=== PATIENT | male | born 1975 | race Caucasian/White ===

== ENCOUNTER 2019-08-08 08:02 | Outpatient (CLI) | payer BC, SELFPAY ==
--- NOTE | 2019-08-12 19:43 | SLEEP_ITS ---
Home sleep test. DATE OF STUDY: 08/08/2019 ORDERING PHYSICIAN: Frank Nguyen M.D. REASON FOR THE STUDY: Constant fatigue, depression, restless sleep. HISTORY: This patient is a 44-year-old male, 6 feet tall, 290 pounds with a body mass index of 39.3. There is a history of sleep apnea and CPAP use. He has constant fatigue, restless sleep, difficulty falling asleep and staying asleep, which began about 10 years ago. He has a deviated septum and had surgery about 13 years ago. He had a sleep study with a CPAP titration, but found that he could not sleep using the CPAP. He tried sleeping pills including Ambien and trazodone with stimulants during the day including Adderall for ADD. This was extremely severe and impacts him during the day. There is a family history with the father having loud snoring and falling asleep during the daytime. He wakes up during the night. His daytime function is poor. He occasionally snores and occasionally it is loud enough that others complain about it. He rarely has trouble sleeping with a cold. He does not gasp for breath at night. He occasionally has breathing problems witnessed by others. He does not sweat excessively at night. He rarely notices his heart pounding or beating irregularly at night. He frequently naps during the daytime. He does not fall asleep involuntarily, while driving, and does not have loss of muscle tone with strong emotion. He frequently has daytime difficulty due to excessive sleepiness. 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 There is no paralysis on falling asleep or waking up. Occasionally, he has vivid dreamlike scenes upon awakening or falling asleep. He is never afraid to go to sleep. He rarely has nightmares. He frequently remembers his dreams. He constantly has racing thoughts. He frequently feels sad, depressed, and occasionally has anxiety. He constantly has muscular tension. He occasionally notices parts of his body jerking. He does not kick at night. Does not have crawly achy feelings in his legs and does not have leg pain at night. He does not have morning jaw pain. He does not grind his teeth at night. He frequently is bothered by pain during the day. He rarely is bothered or awaken with pain at night. He occasionally wakes up feeling stiff in the morning with sore achy muscles. He has bowel disturbances, stomach problems, memory problems and concentration difficulties. He feels unmotivated. Bedtime is 10:00 p.m., taking at least 45 minutes to fall asleep, typically waking 3-5 times at night for anywhere between 15 minutes to 2 hours. During this time, he will lie in bed sometimes, watch television, sometimes he will get up. He wakes up between 9 and 10:00 a.m. Weekend schedule reveals that he goes to bed an hour later, wakes up about the same time in the morning. His social activities have been decreased due to his extreme fatigue and tiredness. He does take naps in the afternoon or evening. A short nap is not refreshing. He is usually drowsy in the morning for 3 hours or longer. MEDICAL COMORBIDITIES: Depression, deviated septum, back pain, IBS with diarrhea, diabetes. MEDICATIONS: 1. Indomethacin 50 mg b.i.d. with food. 2. Duloxetine 60 mg a day. 3. Bupropion HCL 300 mg daily. 4. Melatonin 10 mg at night. HABITS: Never smoked tobacco. Caffeine 4 to 6 beverages a day. No alcohol. No recreational drugs. DESCRIPTION OF THE STUDY: On the [place] Sleepiness Scale, his score is 7. This was conducted as an unattended type 3 portable home sleep test using 4 channel monitoring including respiratory effort channel, snoring channel, oxygen saturation channel, and heart rate channel. The study was scored using [facility] guidelines. Duration was 10 hours
== END 2019-08-08 08:03 | disposition home or self-care (01) ==
LOC: ANHCSM 08:03
PROVIDERS: Visit Provider Family Medicine
DX: G47.00 Insomnia, unspecified (principal)
CPT/HCPCS: 95806

== ENCOUNTER → 2020-11-23 01:14 | Outpatient (CLI) | payer BC, SELFPAY ==
[2020-11-23 18:48] LABS: SARS-CoV-2 RNA PCR Negative
== END ==
PROVIDERS: PCP Family Medicine; Visit Provider Podiatrist Foot & Ankle Surgery
DX: Z01.812 Encounter for preprocedural laboratory examination (principal); Z20.822 Contact with and (suspected) exposure to COVID-19
CPT/HCPCS: C9803; U0003; U0005

== ENCOUNTER 2020-11-26 09:12 | Outpatient (NON) | payer BC, SELFPAY | END 2020-11-27 07:42 | disposition home or self-care (01) | PROVIDERS: PCP Family Medicine; Visit Provider Podiatrist Foot & Ankle Surgery | DX: M72.2 Plantar fascial fibromatosis (principal) | CPT/HCPCS: 88304 ==

== ENCOUNTER 2020-11-26 10:23 | Day surgery (SDC) | payer BC, SELFPAY ==
[2020-11-19 10:55] VITALS: BMI 40.6
[2020-11-26 10:55] VITALS: BP 132/98; PULSE 91; RESP 18; TEMP 36.2; O2SAT 100
[2020-11-26] MEDS: LACTATED RINGERS 1,000 ML 30 ML IV CONT ×2 (11:00→12:51)
--- NOTE | 2020-11-26 11:16 | WPDANESEPPF ---
Anes - Initial Pre Proc Eval Procedure: Operation Date: 11/26/20 12:00 Proposed Procedures p Partial Plantar Fasciectomy Left Foot - Maycol Cortez JR, MD Date/Time: 11/26/20 11:16 Surgeon: Maycol Cortez JR, MD Pre Op Diagnosis: Recalcitrant Plantar Fasciitis Left Foot Patient Data Age: 45 Gender: M Height: 6 ft Weight: 145.7 kg Last Vital Signs Temp 36.2 C L 11/26/20 10:55 Pulse 91 11/26/20 10:55 Resp 18 11/26/20 10:55 BP 132/98 H 11/26/20 10:55 Pulse Ox 100 11/26/20 10:55 Allergies Allergy/AdvReac Type Severity Reaction Status Date / Time No Known Allergies Allergy Verified 11/26/20 10:45 Home Medications Medication Instructions Recorded Confirmed Type duloxetine 60 mg capsule,delayed 60 mg PO DAILY #90 cap 08/28/19 11/26/20 Rx release bupropion HCl 300 mg 24 hr tablet, See Rx Instructions .ROUTE 05/17/20 11/26/20 Rx extended release .COMPLEX #90 tablet covid neg Patient hx anesthesia problems: post op nausea/vomiting Family hx anesthesia problems: none PMFSH Past Medical History Medical History ADD (attention deficit disorder) Depression Surgical History Surgical History H/O nasal septoplasty Hx of tonsillectomy Family History Family History Other Diabetes mellitus Family history of arthritis Social History Social History Smoking status: Never smoker Alcohol intake: never Substance use: never Living arrangements: with family Spiritual care concerns: No Anes - Eval Final PreProcedure Day of Procedure 11/26/20 11:16 Patient weight: morbidly obese Heart: regular rate and rhythm Lungs: clear to auscultation Airway: Mallampati scale class II Neurological: alert and oriented Last oral intake: >/= 8 hours ASA classification: III Emergent: no Anesthetic plan: proceed Anesthesia type and monitoring: general GIVS and standard monitoring Informed Consent: The patient's anesthetic plan and its attendant risks and benefits were discussed with the patient/family/POA. Questions were solicited and answers provided to the satisfaction of the patient/family/POA.
--- NOTE | 2020-11-26 11:56 | WPDHPUPDATE1 ---
History and Physical Update Update Date/Time: 11/26/20 11:56 History and Physical has been reviewed, including an updated exam of the patient. There are NO changes in the patient's condition. Risks, benefits, and alternatives have been discussed and questions answered. Patient agrees to proceed with procedure.
[2020-11-26] MEDS: LIDOCAINE HCL 2% LOCAL INJ 20 ML VIAL 5 ML INFILTRATE (12:45)
--- NOTE | 2020-11-26 12:50 | PM.PROC ---
Procedure Note - Detailed Date of procedure: 11/26/20 Pre-op diagnosis: Recalcitrant Plantar Fasciitis Left Foot Post-op diagnosis: same Procedure performed: Partial plantar fasciectomy left foot Anesthesia: MAC and local Surgeon: Maycol Cortez JR, DPM Estimated blood loss (mL): 1 Drains: No Packing: No Pathology: yes (Resected segment of plantar fascia sent for gross and histopathology) Complications: No immediate complications Condition: stable Disposition: same day Findings: Under mild sedation, the patient was brought in to the operating room, placed on the operating table in the supine position. A pneumatic ankle tourniquet was placed about the patient's left ankle. Following IV sedation, local anesthesia was obtained about the left lower extremity utilizing 10 mL of 0.5% Marcaine plain and 2% Lidocaine plain to the tibial nerve aspirating before administering the local anesthesia. The foot was then scrubbed, prepped, and draped in the usual aseptic manner. An Esmarch bandage was then used to exsanguinate the patient's foot and the pneumatic ankle tourniquet was then inflated. Next, an incision was made starting distal to the medial tubercle of the calcaneus extending distally 3cm. All bleeders were cauterized as necessary. Next the dissection was continued down to the plantar fascia it was exposed medially and laterally with [employer] [place] retractors. The medial two thirds of the plantar fascia was transected and a 4mm portion was also cut and sent for gross and histophalogy. The wound site was flushed with sterile saline. The Deep subcutaneus tissue was reapproximated with 3.0 Vicryl and the skin was reapproximated with 2.0 Prolene and 3.0 Prolene in Vertical mattress and Simple interrupted suture technique. Upon completion of the procedure, the dorsal incision was dressed with Adaptic, 4x4s, Kerlix, and Coban. The pneumatic ankle tourniquet was then deflated and a prompt hyperemic response was noted to all digits of the left foot. The surgical shoe was then applied. The patient did very well with the procedure and the anesthesia. She was transferred to the recovery room with vital signs stable and vascular status intact to all toes of the affected foot. Following a period of postoperative monitoring, the patient will be discharged home on the following written and oral postoperative instructions: 1. The patient should keep the dressing clean, dry, and intact. Use a cast protector bag with showers. 2. The patient will be strictly non weight bearing with knee scooter and CAM walker boot. 3. Patient should ice and elevate the right foot when at rest. 4. The patient is to contact Dr. Cortez for all postop care and if any problems arise. 5. Prescriptions were written for Percocet 5/325 dispensed 40 to be taken 1 p.o. q.4-6 hours as needed for severe pain.
[2020-11-26 12:51] VITALS: BP 104/80; PULSE 96; RESP 12; O2SAT 98
[2020-11-26 13:06] VITALS: BP 108/82; PULSE 82; RESP 19; O2SAT 100
--- NOTE | 2020-11-26 13:21 | WPDANESPN ---
Anes - Prog Note Post-Op Date/Time: 11/26/20 13:21 Cardiovascular status: normal Respiratory status: normal Airway patency: baseline Mental status: baseline Post-Op hydration status: normal Vital Signs: Last Vital Signs Temp 36.2 C L 11/26/20 10:55 Pulse 82 11/26/20 13:06 Resp 19 11/26/20 13:06 BP 108/82 11/26/20 13:06 Pulse Ox 100 11/26/20 13:06 Pain Score (VAS): 0 I/O: Intake & Output 11/25/20 11/26/20 11/26/20 23:59 07:59 15:59 Intake Total 750 Balance 750 Post-procedural complaints: none Patient Feedback: Patient satisfied with anesthetic care.
[2020-11-26 13:36] VITALS: BP 119/74; PULSE 90; RESP 18; O2SAT 100
== END 2020-11-26 13:40 | disposition home or self-care (01) ==
PROVIDERS: PCP Family Medicine; Visit Provider Podiatrist Foot & Ankle Surgery
PROC: (CPT 28119; principal; 2020-11-26 12:00)
DX: M72.2 Plantar fascial fibromatosis (principal)
CPT/HCPCS: 28060

== ENCOUNTER → 2021-02-05 07:05 | Outpatient (CLI) | payer BC, SELFPAY ==
[2021-02-05 18:53] LABS: SARS-CoV-2 RNA PCR Negative
== END ==
PROVIDERS: PCP Family Medicine; Visit Provider Nurse Practitioner Family
DX: R05 Cough (principal); Z20.822 Contact with and (suspected) exposure to COVID-19
CPT/HCPCS: C9803; U0003; U0005

== ENCOUNTER 2021-05-25 07:25 | Outpatient (CLI) | payer OTHER, SELFPAY ==
[2021-05-25 07:46] LABS: Anion Gap 7 mmol/L (8-16); Blood Urea Nitrogen 15 mg/dL (9-20); Calcium 9.1 mg/dL (8.4-10.2); Carbon Dioxide 27 mmol/L (22-30); Chloride 101 mmol/L (98-107); Estimated Glomerular Filt Rate 60; Glucose 116 mg/dL (65-110); Potassium 4.7 mmol/L (3.4-5.0); Sodium 135 mmol/L (137-145)
[2021-05-30 12:18] LABS: Testosterone Free 42.2 pg/mL (35.0-155.0); Testosterone Total 247 ng/dL (250-1100)
== END 2021-05-25 07:26 | disposition home or self-care (01) ==
PROVIDERS: PCP Family Medicine; Visit Provider Nurse Practitioner Family
DX: R73.09 Other abnormal glucose (principal); R79.89 Other specified abnormal findings of blood chemistry
CPT/HCPCS: 36415; 80048; 84402; 84403

== ENCOUNTER 2021-07-13 10:21 | Outpatient (CLI) | payer OTHER, SELFPAY ==
[2021-07-13 11:01] LABS: Uric Acid 8.7 mg/dL (3.5-8.5)
[2021-07-13 11:15] LABS: Hemoglobin A1C 5.8 % (<5.7)
[2021-07-16 14:07] LABS: Testosterone Free 50.1 pg/mL (35.0-155.0); Testosterone Total 283 ng/dL (250-1100)
== END 2021-07-13 10:22 | disposition home or self-care (01) ==
PROVIDERS: PCP Family Medicine; Visit Provider Nurse Practitioner Family
DX: R79.89 Other specified abnormal findings of blood chemistry (principal); R73.09 Other abnormal glucose; M10.9 Gout, unspecified
CPT/HCPCS: 36415; 83036; 84402; 84403; 84550

== ENCOUNTER 2021-09-21 08:03 | Outpatient (CLI) | payer OTHER, SELFPAY ==
[2021-09-21 08:51] LABS: Anion Gap 7 mmol/L (8-16); Blood Urea Nitrogen 19 mg/dL (9-20); Carbon Dioxide 28 mmol/L (22-30); Chloride 102 mmol/L (98-107); Estimated Glomerular Filt Rate > 60; Glucose 119 mg/dL (65-110); Potassium 4.8 mmol/L (3.4-5.0); Sodium 137 mmol/L (137-145)
[2021-09-25 19:34] LABS: Testosterone Free 20.3 pg/mL (35.0-155.0); Testosterone Total 135 ng/dL (250-1100)
== END 2021-09-21 08:04 | disposition home or self-care (01) ==
PROVIDERS: PCP Family Medicine; Visit Provider Nurse Practitioner Family
DX: E79.0 Hyperuricemia without signs of inflammatory arthritis and tophaceous disease (principal)
CPT/HCPCS: 36415; 80048; 84402; 84403; 84550

== ENCOUNTER 2021-12-03 11:35 | Outpatient (CLI) | payer OTHER, SELFPAY ==
[2021-12-06 17:24] LABS: PSA, Free 0.16 ng/mL; PSA, Total 0.6 ng/mL (<=4.0)
[2021-12-10 04:36] LABS: Testosterone Free 124.4 pg/mL (35.0-155.0); Testosterone Total 613 ng/dL (250-1100)
== END 2021-12-03 11:36 | disposition home or self-care (01) ==
LOC: ANHLAB 11:37
PROVIDERS: PCP Family Medicine; Visit Provider Nurse Practitioner Family
DX: Z12.5 Encounter for screening for malignant neoplasm of prostate (principal); R79.89 Other specified abnormal findings of blood chemistry; E29.1 Testicular hypofunction
CPT/HCPCS: 36415; 84153; 84154; 84402; 84403

== ENCOUNTER 2022-01-28 13:31 | Outpatient (CLI) | payer OTHER, SELFPAY ==
[2022-01-28 14:10] LABS: Hematocrit 51.7 % (42.0-52.0); Hemoglobin 17.7 g/dL (14.0-18.0); Mean Corpuscular HGB Conc 34.2 g/dl (32-36); Mean Corpuscular Volume 87.6 fl (80-100); Mean Platelet Volume 9.4 fl (7.4-10.4); Platelet Count Result 320 k/mm3 (150-375); Red Cell Distribution Width 13.1 % (11.5-14.5); White Blood Count 7.9 K/mm3 (4.5-10.0)
== END 2022-01-28 13:32 | disposition home or self-care (01) ==
PROVIDERS: PCP Family Medicine; Visit Provider Nurse Practitioner Family
DX: R79.89 Other specified abnormal findings of blood chemistry (principal)
CPT/HCPCS: 36415; 85027

== ENCOUNTER 2022-04-14 15:41 | Outpatient (CLI) | payer BC, SELFPAY ==
[2022-04-17 18:15] LABS: Testosterone Free 215.4 pg/mL (35.0-155.0); Testosterone Total 890 ng/dL (250-1100)
== END 2022-04-14 15:42 | disposition home or self-care (01) ==
LOC: ANHLAB 15:45
PROVIDERS: Physician Assistant Medical; PCP Family Medicine; Visit Provider Family Medicine
DX: R79.89 Other specified abnormal findings of blood chemistry (principal)
CPT/HCPCS: 36415; 84402; 84403

== ENCOUNTER 2023-02-07 10:53 | Outpatient (CLI) | payer BC, SELFPAY ==
[2023-02-07 11:45] LABS: Anion Gap 6 mmol/L (8-16); Blood Urea Nitrogen 16 mg/dL (9-20); Carbon Dioxide 24 mmol/L (22-30); Chloride 102 mmol/L (98-107); Cholesterol 190 mg/dL (0-200); Estimated Glomerular Filt Rate > 60; Glucose 113 mg/dL (65-110); HDL Direct 31 mg/dL; Sodium 132 mmol/L (137-145); Triglycerides 119 mg/dL (<150); Uric Acid 7.7 mg/dL (3.5-8.5)
[2023-02-07 11:56] LABS: LDL Cholesterol Direct 129 mg/dL
[2023-02-07 12:51] LABS: Prostate Specific Antigen 1.1 ng/mL (< OR = 4.0)
[2023-02-11 12:13] LABS: Testosterone Free 111.8 pg/mL (35.0-155.0); Testosterone Total 488 ng/dL (250-1100)
== END 2023-02-07 10:54 | disposition home or self-care (01) ==
PROVIDERS: PCP Family Medicine; Visit Provider Nurse Practitioner Family
DX: R73.03 Prediabetes (principal); Z12.5 Encounter for screening for malignant neoplasm of prostate; M10.9 Gout, unspecified; R79.89 Other specified abnormal findings of blood chemistry; Z13.220 Encounter for screening for lipoid disorders; F32.A Depression, unspecified
CPT/HCPCS: 36415; 80048; 80061; 84153; 84402; 84403; 84443; 84550; G0103

== ENCOUNTER 2023-07-18 14:20 | Outpatient (CLI) | payer BC, SELFPAY ==
[2023-07-22 16:01] LABS: Testosterone Free 48.7 pg/mL (35.0-155.0); Testosterone Total 269 ng/dL (250-1100)
== END 2023-07-18 14:21 | disposition home or self-care (01) ==
LOC: ANHLAB 14:22
PROVIDERS: PCP Family Medicine; Visit Provider Nurse Practitioner Family
DX: R79.89 Other specified abnormal findings of blood chemistry (principal)
CPT/HCPCS: 36415; 84402; 84403

== ENCOUNTER 2023-09-07 15:08 | Outpatient (CLI) | payer BC, SELFPAY ==
[2023-09-12 09:03] LABS: Testosterone Free 159.5 pg/mL (35.0-155.0); Testosterone Total 659 ng/dL (250-1100)
== END 2023-09-07 15:09 | disposition home or self-care (01) ==
LOC: ANHLAB 15:09
PROVIDERS: PCP Family Medicine; Visit Provider Physician Assistant Medical
DX: R79.89 Other specified abnormal findings of blood chemistry (principal)
CPT/HCPCS: 36415; 84402; 84403

== ENCOUNTER 2023-10-26 09:42 | Outpatient (CLI) | payer BC, SELFPAY ==
--- NOTE | 2023-11-07 16:53 | WPDSLEEPSTUD ---
Sleep Study Date of Study: 10/26/23 Ordering Provider: TANYA Piedra Interpreting Physician: Veronica Marin DO Sleep Study Type: Polysomnogram Height: 1.83 m Weight: 136.078 kg Body Mass Index: 40.6 Neck Circumference (inches): 18 [place]: 11 Reason for Sleep Study Dyatime hypersomnia Sleep History The patient is a 48-year-old male with ADD, depression, gout, hypogonadism, obesity and previously diagnosed sleep apnea that had a sleep study ordered by the pulmonary group for evaluation of sleep apnea. the patient was started on CPAP in his early 30s but was unable to tolerated. He frequently awakens from sleep short of breath. He occasionally awakens at night with heartburn, belching or cough. He constantly snores and is frequently loud enough that others complain. He frequently has trouble sleeping when he has a cold. He constantly wakes up gasping for air throughout the night. He constantly has breathing problems throughout the night observed by himself or others. He rarely sweats excessively at night. He rarely has heart palpitations or irregular heartbeats during the night. He constantly falls asleep during the day but never while driving. He denies cataplexy. He frequently has trouble at school or work due to sleepiness. He occasionally feels unable to move while waking up or falling asleep. He occasionally experiences vivid dreamlike scenes upon awakening or falling asleep. He denies feeling afraid of going to sleep. He rarely has nightmares. He occasionally remembers his dreams. He frequently has thoughts racing through his mind. He occasionally feels sad, depressed and anxious. He frequently has muscular tension. He frequently notices parts of his body jerk. He occasionally kicks during the night. He denies having crawling and aching feelings in his legs and denies having leg pain during the night. He rarely grinds his teeth during sleep and never awakens with morning jaw pain. He is frequently bothered by pain during the day but rarely awakened by pain during the night. He occasionally wakes up feeling stiff in the morning. He occasionally wakes up with sore or achy muscles. He occasionally wakes up with pain in the neck, spine and other joints. He goes to bed at 10:00 p.m. on weekdays and at 11:30 p.m. on the weekends. It takes him a minimum of 1 hour to fall asleep. He wakes up 3-4 times throughout the night to urinate and it takes 10-20 minutes to fall back asleep. He wakes up at 6:45 a.m. on weekdays and at 10:00 a.m. on the weekends. He typically gets 9 hours of sleep per night. He will stay in bed for 15 minutes after waking up in the morning. He currently lives alone. He denies consuming any caffeinated beverages within 2 hours of bedtime. He denies engaging in physical exercise before bedtime. He will read and watch television before falling asleep. He will take naps in the afternoon or the evening but they are not refreshing. He consumes 1-2 caffeinated sodas per day. He consumes 3-5 alcoholic beverages per day on the weekend. He denies tobacco and recreational drug use. [facility] Past Medical History Medical History ADD (attention deficit disorder) Depression Surgical History Surgical History H/O nasal septoplasty Hx of foot surgery Hx of tonsillectomy Family History Family History Father ADHD Prostate atrophy Mother No problems noted. Sibling Hypoglycemia Other Diabetes mellitus Family history of arthritis Social History Social History Smoking status: Never smoker Second hand tobacco smoke exposure: Yes Alcohol intake: current Drinks per week: 0 Alcohol use details: rarely Substance use: never Substance use type: do
[2023-11-07 16:54] VITALS: BMI 40.6
== END 2023-10-27 06:46 | disposition home or self-care (01) ==
LOC: ANHCSM 09:45
PROVIDERS: PCP Family Medicine; Visit Provider Physician Assistant
DX: G47.33 Obstructive sleep apnea (adult) (pediatric) (principal)
CPT/HCPCS: 95810

== ENCOUNTER 2023-11-23 13:05 | Outpatient (CLI) | payer BC, SELFPAY | END 2023-11-23 13:06 | disposition home or self-care (01) | LOC: ANHLAB 13:07 | PROVIDERS: PCP Family Medicine; Visit Provider Physician Assistant | DX: D64.9 Anemia, unspecified (principal) | CPT/HCPCS: 36415; 82728 ==

== ENCOUNTER 2024-04-23 11:50 | Outpatient (CLI) | payer BC, SELFPAY ==
[2024-05-14 14:57] VITALS: BMI 40.6
--- NOTE | 2024-05-14 14:57 | P.SLEEP_ITS ---
Sleep Study Date of Study: 04/23/24 Ordering Provider: TANYA Piedra Interpreting Physician: Veronica Marin DO Sleep Study Type: CPAP Titration Height: 1.83 m Weight: 136.078 kg Body Mass Index: 40.6 Neck Circumference (inches): 19 [place]: 11 Reason for Sleep Study Polysomnogram on 10/26/2023 showed AHI of 12.5 with desaturation down to 84%. Failed CPAP in the past so elected for Titration study. Sleep History The patient is a 49-year-old male with ADD, depression, gout, hypogonadism, obesity and previously diagnosed sleep apnea that had a sleep study ordered by the pulmonary group for evaluation of sleep apnea. the patient was started on CPAP in his early 30s but was unable to tolerated. He frequently awakens from sleep short of breath. He occasionally awakens at night with heartburn, belc leopoldo or cough. He constantly snores and is frequently loud enough that others complain. He frequently has trouble sleeping when he has a cold. He constantly wakes up gasping for air throughout the night. He constantly has breathing problems throughout the night observed by himself or others. He rarely sweats excessively at night. He rarely has heart palpitations or irregular heartbeats during the night. He constantly falls asleep during the day but never while driving. He denies cataplexy. He frequently has trouble at school or work due to sleepiness. He occasionally feels unable to move while waking up or falling asleep. He occasionally experiences vivid dreamlike scenes upon awakening or falling asleep. He denies feeling afraid of going to sleep. He rarely has nightmares. He occasionally remembers his dreams. He frequently has thoughts racing through his mind. He occasionally feels sad, depressed and anxious. He frequently has muscular tension. He frequently notices parts of his body jerk. He occasionally kicks during the night. He denies having crawling and aching feelings in his legs and denies having leg pain during the night. He rarely grinds his teeth during sleep and never awakens with morning jaw pain. He is frequently bothered by pain during the day but rarely awakened by pain during the night. He occasionally wakes up feeling stiff in the morning. He occasionally wakes up with sore or achy muscles. He occasionally wakes up with pain in the neck, spine and other joints. He goes to bed at 10:00 p.m. on weekdays and at 11:30 p.m. on the weekends. It takes him a minimum of 1 hour to fall asleep. He wakes up 3-4 times throughout the night to urinate and it takes 10-20 minutes to fall back asleep. He wakes up at 6:45 a.m. on weekdays and at 10:00 a.m. on the weekends. He typically gets 9 hours of sleep per night. He will stay in bed for 15 minutes after waking up in the morning. He currently lives alone. He denies consuming any caffeinated beverages within 2 hours of bedtime. He denies engaging in physical exercise before bedtime. He will read and watch television before falling asleep. He will take naps in the afternoon or the evening but they are not refreshing. He consumes 1-2 caffeinated sodas per day. He consumes 3-5 alcoholic beverages per day on the weekend. He denies tobacco and recreational drug use. [facility] Past Medical History Medical History ADD (attention deficit disorder) Depression Surgical History Surgical History H/O nasal septoplasty Hx of foot surgery Hx of tonsillectomy Family History Family History Father ADHD Prostate atrophy Mother No problems noted. Sibling Hypoglycemia Other Diabetes mellitus Family history of arthritis Social History Social History Smoking status: Never smoker Second hand tobacco smoke exposure: Yes Alcohol intake: current Drinks per week: 0 Alcohol use details: rarely Substance use: never Substance use type: does not use Lack of Transportation: No Lack of Food: Never True Current Housing: I Have Housing Concerned About Future Housing: No Difficulty Paying Gas/Electric Bills: No Difficulty Paying for Meds: No Currently Unemployed: No Education: Associate Degree Difficulty w/ Childcare or Family Care: No Living arrangements: with family Occupation/Education: occupation 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[employer]) Gender identity (if verbalized by the patient): Male Spiritual care concerns: No Medications Home Medications Medication Instructions Recorded Confirmed Type allopurinol 100 mg tablet 100 mg PO DAILY #90 tabs 09/19/23 03/01/24 Rx hyoscyamine sulfate 0.125 mg tablet 0.125 mg PO QID PRN dyspepsia #30 09/19/23 03/01/24 Rx tabs paroxetine HCl 30 mg tablet 30 mg PO DAILY #90 tabs 03/11/24 Rx dextroamphetamine-amphetamine ER 25 mg PO DAILY #30 caps 04/18/24 Rx 25 mg 24hr capsule,extend release (Adderall XR) testosterone 4 pump topical DAILY #150 grams 04/18/24 Rx Sleep Procedure A full night polysomnogram using the [employer] multi-channel system recorded the standard physiologic parameters including EEG, EOG, submentalis EMG, anterior tibialis EMG, EKG, body position, nasal and oral airflow using nasal pressure sensor and thermistor.? Respiratory parameters of chest and abdominal movements were recorded with Respiratory Inductance Plethysmography belts. Oxygen saturation was recorded by pulse oximetry. Video monitoring was also performed. Sleep stages, periodic limb movements, and EEG arousals were scored in 30 second epochs according to the criteria of the AASM Scoring Manual. The Apnea-Hypopnea Index was calculated using CMS guidelines for definition of hypopnea with 4% O2 desaturations while scoring respiratory events. Sleep Architecture The total recording time was 467.7 minutes.? The total sleep time was 394.5 minutes. Sleep latency was 51.0 minutes. REM latency was 245.0 minutes. Sleep efficiency was 84.3%. The patient had 11 awakenings for an awakening index of 1.7. Wake after Sleep Onset time was 22.5 minutes. The patient spent 33.0 minutes, 8.4% of total sleep time in Stage N1. The patient spent 257.5 minutes, 65.3% in Stage N2. The patient spent 66.0 minutes, 16.7% in Stage N3. The p atient spent 38.0 minutes, 9.6% in Stage REM. Respiratory Analysis The patient had 7 hypopneas and 2 central apneas for an overall Apnea Hypopnea Index of 1.4 events per hour. The REM Apnea Hypopnea Index was 1.6. The NREM Apnea Hypopnea Index was 1.3. The patient had a Central Apnea Hypopnea Index of 0.3. There was no evidence of Pelon-Alonzo Respirations. The patient was started on CPAP 5 cm H2O and titrated to CPAP 15 cm H2O due to hypopneas. The patient was able to fall asleep starting on CPAP 7 cm H2O. The patient was able to achieve REM sleep starting on CPAP 13 cm H2O. The patient was able to achieve a residual AHI less than 5 with both NREM and REM sleep on 13 cm and 14 cm. On CPAP 13 cm H2O, the patient spent 25 minutes in NREM and 37 minutes in REM with 1 central apnea and 1 hypopnea resulting in an AHI of 1.9. On CPAP 14 cm H2O, the patient spent 96.5 minutes in NREM and 1 minute in REM with 1 central apnea and 1 hypopnea resulting in an AHI of 1.2. The patient had a sleep efficiency of89.2% on 13 cm H2O and 97% on 14 cm H2O. Arousals There were 119 total arousals for an arousal index of 18.1. There were 75 spontaneous arousals for an index of 11.4. ?There were 1 arousals due to respiratory events for an index of 0.2. There were 2 arousals due to periodic limb movements for an index of 0.3.? There were 42 arousals due to isolated limb movements for an index of 6.4. Periodic Limb Movements The patient had 85 isolated limb movements with an index of 12.9. The patient had 15 periodic limb movements with index of 2.3. Patient had a total of 100 limb movements with a total limb movement index of 15.2. Oximetry Data The patient had an average oxygen saturation of 94.2% in sleep with a minimum oxygen saturation of 84.0% and a maximum oxygen saturation of 98.0%. The patient had 11 oxygen desaturations that were 4% or greater resulting in an Oxygen Desaturation Index of 1.7.? The patient spent 0.3 minutes, 0.1% of total sleep time with an oxygen saturation below 88%. Snoring Profile Mild snoring was present in the beginning of the study. The snoring resolved when the patient was titrated to 11 cm H2O. Cardiac Profile The EKG showed normal sinus rhythm. No arrhythmias or PVCs were seen. The patient had an average pulse rate of 73.5 bpm with a minimum pulse rate of 59.0 bpm and a maximum pulse rate of 98.0 bpm. ? EEG Profile No signs of seizure activity seen. Assessment and Plan Assessment and Plan (1) ESPERANZA (obstructive sleep apnea): Code(s): G47.33 - Obstructive sleep apnea (adult) (pediatric) Status: Acute Assessment and Plan: The patient was started on CPAP 5 cm H2O and titrated to CPAP 15 cm H2O due to hypopneas. The patient's sleep apnea resolved on multiple pressures but he was only able to achieve REM sleep on 2 of the pressure settings. I recommend that the patient be prescribed CPAP 14 cm H2O, size large AirFit F20 full face mask, CPAP filters/tubing and heated humidity. This should be used with all episodes of sleep.? Compliance should be reviewed within 31-90 days of starting therapy for usage greater than 4 hours per night greater than 70% of the nights. The patient should be asked about symptoms such as?excessive daytime sleepiness, quality of sleep, decreased nocturia, increased?mental functioning such as memory, mood, and concentration. Data The data obtained during this sleep study is adequate for interpretation. Certification This sleep study has been reviewed by a board certified sleep medicine physician.
== END 2024-04-24 07:23 | disposition home or self-care (01) ==
PROVIDERS: PCP Family Medicine; Visit Provider Physician Assistant
DX: G47.33 Obstructive sleep apnea (adult) (pediatric) (principal)
CPT/HCPCS: 95811

== ENCOUNTER 2024-08-20 15:53 | Outpatient (CLI) | payer BC, SELFPAY ==
[2024-08-20 16:21] LABS: Basophils Absolute Auto 0.1 K/mm3 (0.0-0.1); Basophils Percent Auto 0.6 % (0.2-1.2); Eosinophils Absolute Auto 0.1 K/mm3 (0-0.3); Eosinophils Percent Auto 1.3 % (0-4.4); Hematocrit 55.5 % (42.0-52.0); Hemoglobin 18.5 g/dL (14.0-18.0); Immature Granulocyte Absolute 0.02 K/mm3 (0.00-0.031); Immature Granulocyte Percent A 0.2 % (0-0.5); Lymphocytes Absolute Auto 1.87 K/mm3 (0.9-3.2); Lymphocytes Percent Auto 21.3 % (18.3-44.2); Mean Corpuscular HGB Conc 33.3 g/dl (32-36); Mean Corpuscular Hemoglobin 30.4 pg (26-34); Mean Corpuscular Volume 91.1 fl (80-100); Mean Platelet Volume 9.6 fl (7.4-10.4); Monocytes Absolute Auto 0.5 K/mm3 (0.1-0.6); Neutrophils Absolute Auto 6.2 K/mm3 (1.3-6.7); Neutrophils Percent Auto 70.6 % (45.5-73.1); Platelet Count Result 266 k/mm3 (150-375); Red Blood Count 6.09 M/mm3 (4.6-6.20); Red Cell Distribution Width 12.6 % (11.5-14.5); White Blood Count 8.8 K/mm3 (4.5-10.0)
--- OUTSIDE RECORDS SUMMARY | 2024-08-20 16:21 | XMS_ITS | Clinical Summary ---
Author Organization [facility] Address [address] [place] [address] Care Team Providers Care Vein Pumper Name Role Phone Frank Nguyen MD Primary Care Provider [phone] Allergies No known active allergies Medications albuterol sulfate HFA 108 (90 Base) MCG/ACT inhaler Inhale 2 puffs into the lungs every 6 (six) hours as needed for Wheezing. 8 g 05/23/2023 Active Social History Tobacco Use Types Packs/Day Years Used Date Smoking Tobacco: Never Smokeless Tobacco: Never Tobacco Cessation:Counseling Given: Not Answered Alcohol Use Standard Drinks/Week Comments Not Currently 0 (1 standard drink = 0.6 oz pur e alcohol) socially Sex and Gender Information Value Date Recorded Sex Assigned at Not on file Legal Sex Male 7:33 PM CDT Gender Identity Not on file Sexual Orientation Not on file Last Filed Vital Signs Vital Sign Reading Time Taken Comments Blood Pressure 120/80 05/23/2023 9:00 PM RETAIL MANAGER IN TRAINING Pulse 99 05/23/2023 9:00 PM RETAIL MANAGER [employer] TRAINING Temperature 37.1 C (98.8 F) 05/23/2023 8:26 PM RETAIL MANAGER IN TRAINING Respiratory Rate 20 05/23/2023 6:47 PM RETAIL MANAGER IN TRAINING Oxygen Saturation 98% 05/23/2023 9:00 PM RETAIL MANAGER IN TRAINING Inhaled Oxygen Concentration - - Weight 136.1 kg (300 lb) 05/23/2023 2:21 PM RETAIL MANAGER IN TRAINING Height 182.9 cm (6') 05/23/2023 2:21 PM RETAIL MANAGER IN TRAINING Body Mass Index 40.69 05/23/2023 2:21 PM RETAIL MANAGER IN TRAINING Plan of Treatment Health Maintenance Due Date Last Done Comments Colorectal Cancer Screening Colonoscopy (10 Years) 1977 Annual Physical 01/03/1980 Hepatitis C 1995 DTaP, Tdap and Td Vaccines ( 1 - Tdap) 01/03/1996 Hepatitis B Vaccines (1 of 3 - 19+ 3-dose series) 01/03/1996 COVID-19 Vaccine (1 - 2023-2 5 season) 2024 Influenza Adult (#1) 2024 Meningococcal B Vaccine Aged Out No l onger eligible based on patient's age to complete this topic Meningococcal Vaccine Aged Out No fatou shreyas eligible based on patient's age to complete this topic Pneumococcal Vaccine: Pediat rics (0 to 5 Years) and At-Risk Patients (6 to 64 Years) Aged Out No longer eligible b ased on patient's age to complete this topic RSV Immunizations Under 20 Months Aged Out No longer eligible based on patient's age to complete this topic Insurance Care Teams Vein Pumper Relationship Specialty Start Date End Date Frank Nguyen MD [address] [place] [address] PCP - General FAMILY PRACTICE 02/21/20
[2024-08-20 16:33] LABS: Hemoglobin A1C 5.9 % (<5.7)
[2024-08-20 16:36] LABS: Alanine Aminotransferase 43 U/L (6-50); Albumin Level 4.4 g/dL (3.5-5.1); Alkaline Phosphatase 86 U/L (38-126); Anion Gap 12 mmol/L (4-12); Aspartate Amino Transferase 31 U/L (17-59); Bilirubin,Total 0.8 mg/dL (0.2-1.3); Blood Urea Nitrogen 20 mg/dL (9-20); Calcium 9.4 mg/dL (8.4-10.2); Carbon Dioxide 22 mmol/L (22-30); Chloride 103 mmol/L (98-107); Cholesterol 199 mg/dL (0-200); Estimated Glomerular Filt Rate > 60; Glucose 80 mg/dL (65-110); HDL Direct 36 mg/dL; Potassium 4.4 mmol/L (3.4-5.0); Sodium 137 mmol/L (137-145); Triglycerides 175 mg/dL (<150); Uric Acid 8.6 mg/dL (3.5-8.5)
[2024-08-20 16:47] LABS: LDL Cholesterol Direct 142 mg/dL
[2024-08-20 17:06] LABS: Prostate Specific Antigen 1.4 ng/mL (< OR = 4.0)
== END 2024-08-20 15:54 | disposition home or self-care (01) ==
LOC: ANHLAB 15:54
PROVIDERS: PCP Family Medicine; Visit Provider Physician Assistant Medical
DX: Z13.220 Encounter for screening for lipoid disorders (principal); R73.09 Other abnormal glucose; R79.89 Other specified abnormal findings of blood chemistry; Z12.5 Encounter for screening for malignant neoplasm of prostate; R73.03 Prediabetes; E78.5 Hyperlipidemia, unspecified; M10.9 Gout, unspecified
CPT/HCPCS: 36415; 80053; 80061; 83036; 84153; 84402; 84403; 84443; 84550; 85025; G0103

== ENCOUNTER 2024-11-01 13:12 | Outpatient (CLI) | payer BC, SELFPAY ==
--- OUTSIDE RECORDS SUMMARY | 2024-11-01 13:16 | XMS_ITS | Clinical Summary ---
Author Organization [facility] Address [address] [place] [address] Care Team Providers Care Movie Writer Name Role Phone Frank Nguyen MD Primary Care Provider [phone] Allergies No known active allergies Medications albuterol [...] Comments Blood Pressure 120/80 05/23/2023 9:00 PM CHOREOGRAPHY DIRECTOR Pulse 99 05/23/2023 9:00 PM CHOREOGRAPHY DIRECTOR Temperature 37.1 C (98.8 F) 05/23/2023 8:26 PM CHOREOGRAPHY DIRECTOR Respiratory Rate 20 05/23/2023 6:47 PM CHOREOGRAPHY DIRECTOR Oxygen Saturation 98% 05/23/2023 9:00 PM CHOREOGRAPHY DIRECTOR Inhaled Oxygen Concentration - - Weight 136.1 kg (300 lb) 05/23/2023 2:21 PM CHOREOGRAPHY DIRECTOR Height 182.9 cm (6') 05/23/2023 2:21 PM CHOREOGRAPHY DIRECTOR Body Mass Index 40.69 05/23/2023 2:21 PM CHOREOGRAPHY DIRECTOR Plan of Treatment Health Maintenance Due Date Last Done Comments Colorectal Cancer Screening Colonoscopy (10 Years) 1977 Annual Physical 01/03/1980 Hepatitis C 1995 DTaP, Tdap and Td Vaccines ( 1 - Tdap) 01/03/1996 Hepatitis B Vaccines (1 of 3 - 19+ 3-dose series) 01/03/1996 COVID-19 Vaccine (1 - 2023-2 5 season) 2024 Meningococcal B Vaccine Aged Out No l onger eligible based on patient's age to complete this topic Meningococcal Vaccine Aged Out No fatou shreyas eligible based on patient's age to complete this topic Pneumococcal Vaccine: Pediat rics (0 to 5 Years) and At-Risk Patients (6 to 49 Years) Aged Out No longer eligible b ased on patient's age to complete this topic RSV Immunizations Under 20 Months Aged Out No longer eligible based on patient's age to complete this topic Insurance [id number] Care Teams Movie Writer Relationship Specialty Start Date End Date Frank Nguyen MD [address] [address] PCP - General FAMILY PRACTICE 02/21/20
[2024-11-01 13:28] LABS: Basophils Percent Auto 0.5 % (0.2-1.2); Eosinophils Absolute Auto 0.1 K/mm3 (0-0.3); Eosinophils Percent Auto 1.6 % (0-4.4); Hematocrit 54.4 % (42.0-52.0); Hemoglobin 17.7 g/dL (14.0-18.0); Immature Granulocyte Absolute 0.02 K/mm3 (0.00-0.031); Immature Granulocyte Percent A 0.2 % (0-0.5); Lymphocytes Absolute Auto 1.57 K/mm3 (0.9-3.2); Lymphocytes Percent Auto 19.1 % (18.3-44.2); Mean Corpuscular HGB Conc 32.5 g/dl (32-36); Mean Corpuscular Hemoglobin 30.2 pg (26-34); Mean Corpuscular Volume 92.7 fl (80-100); Monocytes Absolute Auto 0.6 K/mm3 (0.1-0.6); Monocytes Percent Auto 7.2 % (2.6-8.5); Neutrophils Absolute Auto 5.9 K/mm3 (1.3-6.7); Neutrophils Percent Auto 71.4 % (45.5-73.1); Platelet Count Result 247 k/mm3 (150-375); Red Blood Count 5.87 M/mm3 (4.6-6.20); Red Cell Distribution Width 13.3 % (11.5-14.5); White Blood Count 8.2 K/mm3 (4.5-10.0)
== END 2024-11-01 13:13 | disposition home or self-care (01) ==
PROVIDERS: PCP Family Medicine; Visit Provider Physician Assistant Medical
DX: R71.8 Other abnormality of red blood cells (principal)
CPT/HCPCS: 36415; 85025

== ENCOUNTER 2025-02-21 10:00 | Outpatient (CLI) | payer BC, SELFPAY ==
[2025-02-21 10:20] LABS: Hematocrit 52.9 % (42.0-52.0); Hemoglobin 17.2 g/dL (14.0-18.0); Immature Granulocyte Percent A 0.4 % (0-0.5); Lymphocytes Absolute Auto 1.66 K/mm3 (0.9-3.2); Mean Corpuscular HGB Conc 32.5 g/dl (32-36); Mean Corpuscular Hemoglobin 30.4 pg (26-34); Mean Corpuscular Volume 93.5 fl (80-100); Nucleated Red Blood Cells Absolute Auto 0.000 K/mm3 (0.0-0.012); Nucleated Red Blood Cells Perc 0.0 % (0.0-0.2); Platelet Count Result 232 k/mm3 (150-375); Red Blood Count 5.66 M/mm3 (4.6-6.20); White Blood Count 8.4 K/mm3 (4.5-10.0)
[2025-02-21 10:38] LABS: Uric Acid 7.1 mg/dL (3.5-8.5)
[2025-02-21 11:11] LABS: Hemoglobin A1C 5.2 % (<5.7)
[2025-02-26 18:08] LABS: Free Testosterone (Direct) 4.6 pg/mL (6.8-21.5)
== END 2025-02-21 10:01 | disposition home or self-care (01) ==
LOC: ANHLAB 10:01
PROVIDERS: PCP Family Medicine; Visit Provider Physician Assistant Medical
DX: R73.03 Prediabetes (principal); R79.89 Other specified abnormal findings of blood chemistry; R71.8 Other abnormality of red blood cells; M1A.9XX0 Chronic gout, unspecified, without tophus (tophi)
CPT/HCPCS: 36415; 83036; 84402; 84403; 84550; 85025

== ENCOUNTER 2025-05-08 13:19 | Outpatient (CLI) | payer BC, SELFPAY ==
--- OUTSIDE RECORDS SUMMARY | 2025-05-08 14:01 | XMS_ITS | Patient Health Record ---
Author Organization [facility] Address [address] [facility] [address] [place] [address] Care Team Providers Care Patent Law Specialist Name Role Phone Ada VINCENT, Nidal Primary Care Provider Unavail able Reason For Referral No Information Plan Of Treatment No Information Insurance Providers Payer Name Payer Address Payer Phone Subscriber Number Group Number Insured Name Patient Relationship to Insured Coverage Start Date Coverage End Date Blue Access PPO E2 [address] [place] [phone] [id number] Santosh Pressley Spouse - patient is the spouse of the insured
[2025-05-08 14:41] LABS: Hematocrit 50.4 % (42.0-52.0); Hemoglobin 16.6 g/dL (14.0-18.0); Mean Corpuscular HGB Conc 32.9 g/dl (32-36); Mean Corpuscular Hemoglobin 31.3 pg (26-34); Mean Corpuscular Volume 95.1 fl (80-100); Platelet Count Result 256 k/mm3 (150-375); Red Blood Count 5.30 M/mm3 (4.6-6.20); White Blood Count 9.1 K/mm3 (4.5-10.0)
[2025-05-13 13:08] LABS: Free Testosterone (Direct) 36.0 pg/mL (6.8-21.5)
== END 2025-05-08 13:20 | disposition home or self-care (01) ==
LOC: ANHLAB 13:21
PROVIDERS: PCP Family Medicine; Visit Provider Nurse Practitioner Family
DX: R79.89 Other specified abnormal findings of blood chemistry (principal)
CPT/HCPCS: 36415; 84402; 84403; 85027